=== PATIENT | male | born 1985 | race Native Hawaiian/Other Pacific Islander ===

== ENCOUNTER 2021-11-21 14:28 | Emergency (ER) | payer OTHER ==
[~2021-11-21] VITALS: Ht 180 cm; Wt 73.0 kg
--- NOTE | 2021-11-21 14:59 | ED Upper Extremity ---
General Chief Complaint: Laceration Stated Complaint: CUT ON RT INDEX FINGER Source: patient Exam Limitations: no limitations History of Present Illness Date Seen by Provider: Nov 21, 2021 Time Seen by Provider: 14:48 Initial Comments Patient to the ER by private conveyance chief complaint just prior to arrival he was at work and cut his index finger on his right hand dorsum proximal phalanx about 2 cm with metal on accident. He is up-to-date on tetanus vaccine. Pain is under control. Bleeding is under control. Allergies and Home Medications Allergies Coded Allergies: Sulfa (Sulfonamide Antibiotics) (Verified Allergy, Unknown, 11/21/21) Patient Home Medication List Home Medication List Reviewed: Yes Review of Systems Constitutional: No chills, No diaphoresis EENTM: No ear discharge, No ear pain Respiratory: No cough, No short of breath Cardiovascular: No chest pain, No edema Gastrointestinal: No abdominal pain, No constipation, No diarrhea Genitourinary: No discharge, No dysuria Musculoskeletal: No back pain, No joint pain All Other Systems Reviewed Negative Unless Noted: Yes Past Iwcqyle-Kcgfnd-Tankal Hx Patient Social History Tobacco Use?: No Use of E-Cig and/or Vaping dev: No Physical Exam Vital Signs Vital Signs - First Documented 11/21/21 14:50 Temp 36.7 Pulse 73 Resp 18 B/P (MAP) 108/73 (85) Pulse Ox 98 O2 Delivery Room Air Capillary Refill : Height, Weight, BMI Height: '" Weight: lbs. oz. kg; BMI Method: General Appearance: WD/WN, no apparent distress HEENT: PERRL/EOMI, pharynx normal Cardiovascular: normal peripheral pulses, regular rate, rhythm Respiratory: no respiratory distress, no accessory muscle use Wrist: Yes normal inspection, Yes no evidence of injury, Yes normal ROM Hand: normal ROM, Right, laceration (Laceration on the dorsum of the proximal phalanx of the second digit of the right hand 2.5 cm) Procedures/Interventions Wound Location: Upper Extremities Other Wound Location Second digit right hand dorsum of the proximal phalanx Wound Length (cm): 2.5 Wound's Depth, Shape: linear Wound Explored: clean Irrigated w/ Saline (ccs): 50 Betadine Prep?: Yes (Chlorhexidine) Anesthesia: 1% Lidocaine Volume Anesthetic (ccs): 2 Suture: Prolene Suture Size: 4-0 Number of Sutures: 3 Layer Closure?: 1 Number Deep Layer Sutures: 0 Sterile Dressing Applied?: Yes Progress/Results/Core Measures Results/Orders Vital Signs/I&O 11/21/21 14:50 Temp 36.7 Pulse 73 Resp 18 B/P (MAP) 108/73 (85) Pulse Ox 98 O2 Delivery Room Air Departure Impression Primary Impression: Laceration of finger of right hand Qualified Codes: S61.210A - Laceration without foreign body of right index finger without damage to nail, initial encounter Disposition: HOME, SELF-CARE Condition: Improved Departure-Patient Inst. Decision time for Depature: 15:26 Patient Instructions: Laceration Repair With Stitches (DC) Add. Discharge Instructions: Keep the wound clean with regular soap and water only. Apply direct pressure for 20 minutes if you have bleeding and elevate above the level of your heart. Keep a dry clean gauze dressing on it and change it daily or more frequently if it becomes soiled. After the first couple days you only need to have it dressed when you are in a chucky, dirty environment. Triple antibiotic ointment or Vaseline to keep the stitches from sticking to the bandage is acceptable. Tylenol 1000 mg every 8 hours as needed for pain. Ibuprofen 800 mg every 8 hours as needed for pain. Cephalexin 500 mg 3 times daily for 3 days to prevent infection. Return to the ER in 10 to 14 days to have the sutures removed. Return to the ER or your doctor sooner if you are seeing redness going up your hand, fever, vomiting or other signs of infection All discharge instructions reviewed with patient and/or family. Voiced understanding. Scripts Cephalexin (Cephalexin) 500 Mg Tablet 500 MG PO TID for 3 Days, #9 TAB 0 Refills Prov: ANDRE LEYVA 11/21/21 Work/School Note: Work Release Form Date Seen in the Emergency Department: Nov 21, 2021 Return to Work: Nov 22, 2021 Restrictions: Need Release from Doctor Other Restrictions Listed Below: Do not submerse the hand until stitches are out. No dishes. Restrictions: Keep the wound dressed while at work. ANDRE LEYVA Nov 21, 2021 14:59
[2021-11-21] MEDS ORDERED: CEPH500T PO (15:27)
[2021-11-21 15:30] VITALS: BP 108/73
== END 2021-11-21 15:30 | disposition home or self-care (01) ==
LOC: ER 14:41
DX: S61.210A Laceration without foreign body of right index finger without damage to nail, initial encounter (principal); Z28.311 Partially vaccinated for COVID-19; W26.8XXA Contact with other sharp object(s), not elsewhere classified, initial encounter; Y92.59 Other trade areas as the place of occurrence of the external cause; Y99.0 Civilian activity done for income or pay
CPT/HCPCS: 12031

== ENCOUNTER 2021-12-20 15:10 | Emergency (ER) | payer OTHER ==
[~2021-12-20] VITALS: Ht 180 cm; Wt 73.0 kg
[~2021-12-20 15:10] MED LIST: CEPH500T PO
[2021-12-20] MEDS ORDERED: NS IV 1000 ML 1,000 ML IV ONE (15:30)
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
[2021-12-20 15:42] LABS: BASOPHILS % (AUTO) 1 % (0-10); EOSINOPHILS # (AUTO) 0.1 10^3/uL (0.0-0.3); EOSINOPHILS % (AUTO) 2 % (0-10); HEMATOCRIT 39 % (40-54); HEMOGLOBIN 14.5 g/dL (13.3-17.7); LYMPHOCYTES # (AUTO) 2.3 X 10^3 (1.0-4.0); LYMPHOCYTES % (AUTO) 37 % (12-44); MEAN CORPUSCULAR HEMOGLOBIN 33 pg (25-34); MEAN CORPUSCULAR HGB CONC 37 g/dL (32-36); MEAN CORPUSCULAR VOLUME 90 fL (80-99); MEAN PLATELET VOLUME 9.7 fL (9.0-12.2); MONOCYTES # (AUTO) 0.5 X 10^3 (0.0-1.0); MONOCYTES % (AUTO) 7 % (0-12); NEUTROPHILS # (AUTO) 3.5 X 10^3 (1.8-7.8); NEUTROPHILS % (AUTO) 54 % (42-75); PLATELET COUNT 236 10^3/uL (130-400); WHITE BLOOD COUNT 6.4 10^3/uL (4.3-11.0)
[2021-12-20 15:53] LABS: ALBUMIN 4.7 GM/DL (3.2-4.5); CHLORIDE 105 MMOL/L (98-107); POTASSIUM 4.2 MMOL/L (3.6-5.0); SODIUM 140 MMOL/L (135-145)
[2021-12-20 15:54] LABS: CALCIUM 9.6 MG/DL (8.5-10.1)
[2021-12-20 15:55] LABS: GLUCOSE 84 MG/DL (70-105); TOTAL PROTEIN 7.5 GM/DL (6.4-8.2)
[2021-12-20 15:56] LABS: CARBON DIOXIDE 26 MMOL/L (21-32)
[2021-12-20 15:57] LABS: BILIRUBIN,TOTAL 0.5 MG/DL (0.1-1.0)
[2021-12-20 15:58] LABS: ALKALINE PHOSPHATASE 76 U/L (40-136)
[2021-12-20 15:59] LABS: CREATININE SERUM 0.81 MG/DL (0.60-1.30); GFR ESTIMATED 118
[2021-12-20 16:00] LABS: BUN/CREATININE RATIO 21
[2021-12-20 16:02] LABS: ALANINE AMINOTRANSFERASE 20 U/L (0-55); CREATINE KINASE 123 U/L (30-200)
--- NOTE | 2021-12-20 16:21 | Diagnostic Imaging Report ---
INDICATION: Nasal pain post injury. TECHNIQUE: AP and lateral views of the nasal bones are obtained. FINDINGS: No fracture or acute bony abnormality is seen. Visualized sinuses appear well aerated. IMPRESSION: Negative nasal bones. Dictated by: Dictated on workstation # [id number]
[2021-12-20] MEDS ORDERED: LACTATED RINGERS 1,000 ML IV ONE ×2 (16:30→17:30)
[2021-12-20 17:06] LABS: BILIRUBIN,URINE NEGATIVE (NEGATIVE); CLARITY,URINE CLEAR; COLOR,URINE YELLOW; GLUCOSE, URINE (UA) NEGATIVE (NEGATIVE); KETONES,URINE NEGATIVE (NEGATIVE); LEUKOCYTE ESTERASE ,URINE NEGATIVE (NEGATIVE); NITRITE,URINE NEGATIVE (NEGATIVE); PH,URINE 6.5 (5-9); PROTEIN,URINE NEGATIVE (NEGATIVE)
[2021-12-20 17:12] LABS: BACTERIA,URINE NEGATIVE /HPF; WBC,URINE 0-2 /HPF
[2021-12-20 19:03] VITALS: BP 136/100
== END 2021-12-20 19:03 | disposition short-term general hospital (02) ==
LOC: EDUNIT# 15:10 → ER 15:13
DX: T23.202A Burn of second degree of left hand, unspecified site, initial encounter (principal); T23.201A Burn of second degree of right hand, unspecified site, initial encounter; R82.1 Myoglobinuria; Z72.0 Tobacco use; Z28.311 Partially vaccinated for COVID-19; W86.8XXA Exposure to other electric current, initial encounter; Y99.0 Civilian activity done for income or pay
CPT/HCPCS: 36415; 70160; 80053; 81000; 82550; 83874; 84484; 85025; 93005